=== PATIENT | male | born 1940 | race Caucasian/White ===

== ENCOUNTER 2017-07-15 18:15 | Emergency (ER) | payer OTHER, MEDICARE ==
[~2017-07-15] VITALS: Ht 170.2 cm; Wt 88.0 kg
[2017-07-15 21:24] LABS: ABSOLUTE BASOPHIL COUNT 0 /CUMM (0.0-0.2); ABSOLUTE EOSINOPHIL COUNT 0.1 /CUMM (0.0-0.7); ABSOLUTE GRANULOCYTE CT 4.4 /CUMM (1.4-6.5); ABSOLUTE LYMPH COUNT 1.7 /CUMM (1.2-3.4); ABSOLUTE MONOCYTE COUNT 0.6 /CUMM (0.10-0.60); BASOPHIL % 0.2 % (0.0-2.0); EOSINOPHIL % 1.2 % (0-5); GRANULOCYTE % 64.5 % (42.2-75.2); HEMATOCRIT 44.5 % (42-52); MEAN CORPUSCULAR HGB 29.6 PG (27.0-31.0); MEAN CORPUSCULAR HGB CONC 32.4 G/DL (33.0-37.0); MEAN CORPUSCULAR VOLUME 91.3 FL (80.0-94.0); PLATELET COUNT 174 /CUMM (130-400); RBC DISTRIBUTION WIDTH 14.1 % (11.5-14.5); RED BLOOD CELL CT 4.88 /CUMM (4.70-6.10); WHITE BLOOD CELL COUNT 6.9 /CUMM (4.8-10.8)
[2017-07-15] MEDS ORDERED: DOXYCYCLINE HY100 M4 PO (22:09)
[2017-07-15] MEDS ORDERED: DELTASONE20 MG PO (22:09)
[2017-07-15] MEDS ORDERED: CHERATUSSIN AC118 M1 PO (22:09)
[2017-07-15] MEDS ORDERED: PROAIR HFA8.5 GM INH (22:10)
--- NOTE | 2017-07-15 22:11 | ED INFLUENZA/URI COMPLAINT ---
History of Present Illness General Chief Complaint: General Adult Stated Complaint: SIB DR CHURCH ?FLU Source: patient Exam Limitations: no limitations Vital Signs & Intake/Output Vital Signs & Intake/Output Vital Signs Date Time Temp Pulse Resp B/P B/P Pulse O2 O2 Flow FiO2 Mean Ox Delivery Rate 07/15 2219 99 20 129/69 92 Room Air 07/15 1849 98.1 87 18 108/71 94 Room Air ED Intake and Output 07/16 0000 07/15 1200 Intake Total 0 Output Total Balance 0 Intake, Oral 0 Patient 194 lb Weight Allergies Coded Allergies: MDX - Penicillin (UNKNOWN 07/15/17) Uncoded Allergies: Allergy Other DENIES Food Allergies DENIES Med Allergies AMBIEN Reconcile Medications Albuterol Sulfate (Proair Hfa) 90 MCG HFA.AER.AD 2 PUF INH Q4-6 PRN PRN cough/ sob Codeine Phosphate/Guaifenesi (Cheratussin AC Syrup) 10 MG-100 MG/5 ML LIQUID 10 ML PO Q6 PRN COUGH Doxycycline Hyclate 100 MG TABLET 1 TAB PO BID BRONCHITIS Prednisone (Deltasone) 20 MG TABLET 2 TAB PO ONCE DAILY PRN BRONCHITIS Triage Note: PT SENT TO ER BY DR CHURCH WHO WOULD LIKE TO BE CALLED WITH TEST RESULTS, PT WAS SEEN BY HER FOR COUGH ON TUESDAY AND SHE STARTED HIM ON ZPACK WHICH HE FINISHED, PT HAS NOT BEEN GETTING BETTER, DENIES FEVERS BUT HAS BEEN FEELING SOB AT REST AND ON EXERTION, O2 SAT 94 % ON RA, PT HAS COUGH NON PRODUCTIVE CAN'T SLEEP AT NIGHT DUE TO COUGH EVEN THOUGH HE IS TAKING COUGH MEDS. DENIES CP. PMD WOULD LIKE CHEST CT TO CHECK FOR PE. Triage Nurses Notes Reviewed? yes Onset: Abrupt Duration: day(s): (5), constant, continues in ED, getting worse Timing: single episode today Severity: moderate, severe Prior Episodes/Possible Cause: no prior episodes No Modifying Factors: none Associated Symptoms: cough, wheezing HPI: 76-year-old male past medical history of hypertension, lipidemia since her evaluation of cough, congestion and wheezing. Patient states that symptoms began about 5 days ago but be getting worse. He reports cough productive of clear sputum. He also reports wheezing and shortness of breath that is worse on exertion. No hemoptysis no chest pain no fevers. He saw his primary care doctor on Tuesday was started on a Z-Galdino without any improvement. No history of recent surgery recent trauma no lower extremity edema. He quit smoking greater than 50 years ago. He has no history of COPD or asthma. (Emeka Hankins) Past History Travel History Traveled to [place] past 21 day No Medical History Any Pertinent Medical History? see below for history Neurological: TIA EENT: NONE Cardiovascular: hypertension, hyperlipidemia Respiratory: NONE Gastrointestinal: NONE Hepatic: NONE Renal: NONE Musculoskeletal: NONE Psychiatric: NONE Endocrine: NONE Blood Disorders: NONE Cancer(s): NONE PROFESSOR OF GRAPHIC DESIGN/Reproductive: NONE Surgical History Surgical History: non-contributory Psychosocial History What is your primary language Ivorian Tobacco Use: Never used ETOH Use: denies use Illicit Drug Use: denies illicit drug use Family History Hx Contributory? No (Emeka Hankins) Review of Systems Review of Systems Constitutional: Reports: no symptoms. EENTM: Reports: no symptoms. Respiratory: Reports: see HPI, cough, short of breath, sputum production, wheezing. Cardiovascular: Reports: no symptoms. GI: Reports: no symptoms. Genitourinary: Reports: no symptoms. Musculoskeletal: Reports: no symptoms. Skin: Reports: no symptoms. Neurological/Psychological: Reports: no symptoms. Hematologic/Endocrine: Reports: no symptoms. Immunologic/Allergic: Reports: no symptoms. All Other Systems: Reviewed and Negative (Emeka Hankins) Physical Exam Physical Exam General Appearance: well developed/nourished, no apparent distress, alert, awake Head: atraumatic, normal appearance Eyes: Bilateral: normal appearance, PERRL, EOMI. Ears, Nose, Throat: normal ENT inspection, moist mucous membrane, hearing grossly normal, Tympanic normal, pharynx normal Neck: normal inspection, supple, full range of motion Respiratory: chest non-tender, no respiratory distress, rhonchi, wheezing Cardiovascular: regular rate/rhythm, normal peripheral pulses Peripheral Pulses: 2+ radial (R), 2+ radial (L) Gastrointestinal: normal bowel sounds, soft, non-tender, no organomegaly Back: normal inspection, normal range of motion, no vertebral tenderness Extremities: normal inspection, normal range of motion, no edema Neurologic/Psych: no motor/sensory deficits, awake, alert, oriented x 3, normal gait Skin: intact, normal color, warm/dry Lymphatic: no anterior cervical chu Core Measures Sepsis Present: No Sepsis Focused Exam Completed? No (Black PA,Emeka) Progress Differential Diagnosis: influenza, otitis, pneumonia, pharyngitis, sinusitis, acute bronchitis, pulmonary embolism, acute coronary syndrome, pleural effusion Plan of Care: Orders Procedure Date/time Status TROPONIN LEVEL 07/15 2101 Complete D-DIMER 07/15 2101 Complete COMPREHENSIVE METABOLIC PANEL 07/15 2101 Complete CBC WITHOUT DIFFERENTIAL 07/15 2101 Complete EKG 07/15 2101 Active RAPID VIRAL INFLUENZA A 07/16 1843 Complete Laboratory Tests 07/15/172109: Anion Gap 13, Estimated GFR > 60, BUN/Creatinine Ratio 30.9 H, Glucose 129 H, Calcium 9.5, Total Bilirubin 1.1, AST 52, ALT 64, Alkaline Phosphatase 54, Troponin I < 0.01, Total Protein 7.2, Albumin 4.1, Globulin 3.1, Albumin/ Globulin Ratio 1.3, D-Dimer High Sensitivty 220, CBC w Diff NO MAN DIFF REQ, RBC 4.88, MCV 91.3, MCH 29.6, MCHC 32.4 L, RDW 14.1, MPV 8.0, Gran % 64.5, Lymphocytes % 24.8, Monocytes % 9.3, Eosinophils % 1.2, Basophils % 0.2, Absolute Granulocytes 4.4, Absolute Lymphocytes 1.7, Absolute Monocytes 0.6, Absolute Eosinophils 0.1, Absolute Basophils 0 Microbiology 07/15 2014 NASOPHARYN: Influenza Virus A & B Rapid Smear - COMP Patient has diffuse wheezing and rhonchi auscultated bilaterally. No signs of hypoxia. Chest x-ray from earlier today is negative for pneumonia. EKG basic blood work obtained. All blood work is within normal limits including a negative d-dimer negative troponin. Patient was medicated with a DuoNeb and is feeling much better. I ambulated him in the emergency department and he maintained oxygen saturation above 94%. no cyanosis. pt reprots improvement in symptoms. pt will be treated with bronchitis with pro-air inhaler, prednisone 40 mg, Cheratussin and doxycycline. Advised rest and fluids Tylenol for pain or fevers. Follow-up with primary care doctor on Tuesday. Discussed return precautions in detail. Case discussed with Dr. Girard he agrees. Diagnostic Imaging: Viewed by Me: Radiology Read. Discussed w/RAD: Radiology Read. CXR Impression: ATIENT: ISHA GONZALEZ PRESENT AGE : 76 PATIENT ACCOUNT NO: [id number] : 38 LOCATION: [facility]X ORDERING PHYSICIAN: Aurea Church MD SERVICE DATE: 07/15/17 EXAM TYPE: RAD - XRY-CHEST XRAY, TWO VIEWS EXAMINATION: XR CHEST CLINICAL INFORMATION: Cough COMPARISON: 05/11/2010 TECHNIQUE: 2 views of the chest were obtained. FINDINGS: The cardiomediastinal silhouette is normal. No pulmonary venous congestion. No focal pulmonary consolidation. No pleural effusion. No pneumothorax. Multilevel anterior endplate osteophytosis of the thoracic spine noted. Right upper quadrant surgical uylia, represent prior cholecystectomy. IMPRESSION: No acute cardiopulmonary findings. DICTATED BY: Maciej Talavera MD DATE/TIME DICTATED:09/26 MANAGER OF APPLICATIONS DEVELOPMENT:LEIGH DATE/TIME TRANSCRIBED:07/15/171320 CONFIDENTIAL, DO NOT COPY WITHOUT APPROPRIATE AUTHORIZATION. <Electronically signed in Other Vendor System> Initial ED EKG: normal sinus rhythm, left atrial abn (Emeka Hankins) Departure Departure Disposition: HOME OR SELF CARE Condition: Stable Clinical Impression Primary Impression: Acute bronchitis Qualifiers: Bronchitis organism: unspecified organism Qualified Code: J20.9 - Acute bronchitis, unspecified Referrals: Aurea Church MD (PCP/Family) Additional Instructions: Take antibiotics and steroids as directed for the full course. Pro-air inhaler 2 puffs every 4-6 hours as needed. Cheratussin as needed for cough at nighttime only this may cause drowsiness. Make a follow-up appointment with your primary care doctor to review all results of today's visit and to reassess her symptoms this coming week. Return sooner with any concerns. Departure Forms: Customer Survey General Discharge Information Prescriptions: Current Visit Scripts Prednisone (Deltasone) 2 TAB PO ONCE DAILY PRN BRONCHITIS #10 ML Doxycycline Hyclate 1 TAB PO BID #14 TAB Codeine Phosphate/Guaifenesi (Cheratussin AC Syrup) 10 ML PO Q6 PRN COUGH #240 ML Albuterol Sulfate (Proair Hfa) 2 PUF INH Q4-6 PRN PRN cough/sob #1 INHAL (Emeka Hankins) PA/TETRYL NITRATOR OPERATOR Co-Sign Statement Statement: ED Attending supervision documentation- [] I saw and evaluated the patient. I have also reviewed all the pertinent lab results and diagnostic results. I agree with the findings and the plan of care as documented in the PA's/TETRYL NITRATOR OPERATOR's documentation. [x] I have reviewed the ED Record and agree with the PA's/TETRYL NITRATOR OPERATOR's documentation. [] Additions or exceptions (if any) to the PAs/TETRYL NITRATOR OPERATOR's note and plan are summarized below: [] (Era BORDEN,Padilla Waters)
[2017-07-15 22:19] VITALS: BP 129/69
== END 2017-07-15 22:19 ==
LOC: ERH 18:15
PROVIDERS: Physician Assistant Medical
DX: J20.9 Acute bronchitis, unspecified (principal)
CPT/HCPCS: 1263; 87804; 87804-59; 93005; 93010